=== PATIENT | male | born 1995 | race African-American/Black ===

== ENCOUNTER 2019-09-08 23:17 | Emergency (ER) | payer OTHER ==
[~2019-09-08] VITALS: Ht 172.7 cm; Wt 68.0 kg
[2019-09-08 23:28] VITALS: BP 127/77
[2019-09-08] MEDS ORDERED: predniSONE 20 MG TABLET ONE (23:58)
[2019-09-08] MEDS ORDERED: FAMOTIDINE (20 MG) 20 MG TABLET ONE (23:58)
[2019-09-09] MEDS ORDERED: predniSONE 20 MG TABLET PO ONE
[2019-09-09] MEDS ORDERED: FAMOTIDINE (20 MG) 20 MG TABLET PO ONE
--- NOTE | 2019-09-09 00:02 | NUR ---
Patient discharged to home in stable condition. Written and verbal after care instructions given. Patient verbalizes understanding of instruction.
== END 2019-09-09 00:03 | disposition home or self-care (01) ==
LOC: ER 23:24
DX: L50.8 Other urticaria (principal); E10.9 Type 1 diabetes mellitus without complications; F10.10 Alcohol abuse, uncomplicated; F17.200 Nicotine dependence, unspecified, uncomplicated; Y90.9 Presence of alcohol in blood, level not specified
CPT/HCPCS: 99283; J7512

== ENCOUNTER 2020-10-03 11:10 | Emergency (ER) | payer OTHER ==
[~2020-10-03] VITALS: Ht 172.7 cm; Wt 59.0 kg
[2020-10-03 11:10] VITALS: BP 134/77
[2020-10-03] MEDS ORDERED: IV NS 0.9% 1,000 ML BAG IV ONE (11:30)
[2020-10-03] MEDS ORDERED: LORAZEPAM INJ 2 MG/ML VIAL IV ONE (11:30)
--- NOTE | 2020-10-03 12:11 | NUR ---
Pt eloped from facility
== END 2020-10-03 12:25 | disposition left against medical advice (07) ==
LOC: ER 11:15
DX: R10.84 Generalized abdominal pain (principal); E11.65 Type 2 diabetes mellitus with hyperglycemia; E11.10 Type 2 diabetes mellitus with ketoacidosis without coma